=== PATIENT | male | born 1950 | race Caucasian/White ===

== ENCOUNTER 2019-08-30 10:44 | Emergency (ER) | payer OTHER ==
--- NOTE | 2019-08-30 11:15 | ED Physician Documentation ---
PD HPI BACK PAIN - Stated complaint Stated Complaint: BACK PX - Chief complaint Chief Complaint: Back Pain - History obtained from History obtained from: Patient - History of Present Illness Timing - onset: How many months ago (1-2) Timing - duration: Months Timing - details: Gradual onset, Still present (The patient has had 1 to 2 months of intermittent lower back pain. He does not recall any particular trauma. It seems to worsen with bending or lifting. Will hurt at times despite activity. It is worse with bending twisting and reaching. It is in the lower back without any radiation to the legs and there is no lower extremity paresis or paresthesias no any bowel or bladder dysfunction. The pain is been worse over the last week or so. No rash fevers or troubles urinating.), Waxing and waning Location: Lower, Right, Left Quality: Pain, Aching Associated symptoms: No: Fever, Weakness, Numbness, Incontinent of urine Improves with: Rest, Meds (ibuprofen) Worsened by: Movement, Lifting, Twisting. No: Palpation Contributing factors: No: Lifting, Trauma, Anticoagulated Similar symptoms before: Has not had sx before Recently seen: Not recently seen Review of Systems Constitutional: denies: Fever, Chills, Myalgias GI: denies: Abdominal Pain, Nausea, Vomiting, Diarrhea : denies: Dysuria, Frequency, Incontinent Skin: denies: Rash, Lesions Musculoskeletal: reports: Back pain. denies: Neck pain Neurologic: denies: Focal weakness, Numbness PD PAST MEDICAL HISTORY - Past Medical History Cardiovascular: Hypertension, High cholesterol - Past Surgical History General: Appendectomy - Present Medications Home Medications: Ambulatory Orders Medication Instructions Recorded Confirmed Hydrocodone/Acetaminophen 1 each PO Q6H PRN #25 tablet 08/30/19 [Hydrocodon-Acetaminophen 5-325] Naproxen 375 mg PO BID #20 tablet 08/30/19 Tizanidine HCl 4 mg PO TID PRN #25 capsule 08/30/19 dexAMETHasone [Decadron] 4 mg PO DAILY #5 tablet 08/30/19 - Allergies Allergies/Adverse Reactions: Allergies Allergy/AdvReac Type Severity Reaction Status Date / Time No Known Drug Allergies Allergy Verified 08/30/19 10:54 - Social History Does the pt smoke?: No Smoking Status: Never smoker Does the pt drink ETOH?: No Does the pt have substance abuse?: No PD ED PE NORMAL - Vitals Vital signs reviewed: Yes - General General: Alert and oriented X 3, No acute distress, Well developed/nourished - Neck Neck: Supple, no meningeal sign, No adenopathy - Cardiac Cardiac: RRR, No murmur - Respiratory Respiratory: Clear bilaterally - Abdomen Abdomen: Normal bowel sounds, Soft, Non tender, Non distended - Back Back: No CVA TTP, Other (He is tender in the muscles along the lower lumbar area more to the left. There is no midline tenderness per se. Lower extremities show normal motor and sensory and good reflexes at the knees. There is no pedal edema no calf tenderness.) - Derm Derm: Normal color, Warm and dry - Extremities Extremities: No tenderness to palpate, No edema, No calf tenderness / cord - Neuro Neuro: Alert and oriented X 3, No motor deficit, No sensory deficit Results - Vitals Vitals: Vital Signs - 24 hr 08/30/19 14:05 Heart Rate 74 Respiratory 18 Rate Blood Pressure 132/85 H O2 Saturation 100 Oxygen O2 Source Room air - Rads (name of study) lumbar CT Radiology: Prelim report reviewed (L5/S1 osteophyte and also Grade 1 spondylolisthesis. Some bridging osteophytes at other levels. No acute process. ), See rad report PD MEDICAL DECISION MAKING - ED course Complexity details: considered differential, d/w patient Departure - Departure Disposition: 01 Home, Self Care Clinical Impression: Low back pain Qualifiers: Chronicity: acute Back pain laterality: bilateral Sciatica presence: without sciatica Qualified Code(s): M54.5 - Low back pain Condition: Stable Record reviewed to determine appropriate education?: Yes Instructions: ED Low Back Pain Injury Follow-Up: PRITI TOMLINSON MD [Primary Care Provider] - Prescriptions: dexAMETHasone [Decadron] 4 mg PO DAILY #5 tablet Hydrocodone/Acetaminophen [Hydrocodon-Acetaminophen 5-325] 1 each PO Q6H PRN #25 tablet PRN Reason: pain Naproxen 375 mg PO BID #20 tablet Tizanidine HCl 4 mg PO TID PRN #25 capsule PRN Reason: Spasms Comments: Your CT scan did not show any significant abnormalities. There is arthritic changes noted in some mild looseness of the ligaments. We can try treating this with a combination of anti-inflammatories (naproxen and Decadron) as well as some muscle relaxant (tizanidine) and the pain medicine (Tylenol and hydrocodone). Take them as prescribed. Physical treatments such as massage and chiropractic are also useful for back pain. Follow-up with your primary care to see if there would like to institute some physical therapy as well to help with the ongoing pains. Recheck if not improving well over the next several days to week and again follow-up with your primary care regarding ongoing treatment. Discharge Date/Time: 08/30/19 14:05
[2019-08-30] MEDS ORDERED: DEXAMETHASONE 10 MG/ML VIAL PO STA (11:59)
[2019-08-30] MEDS ORDERED: NAPROXEN 250 MG TABLET PO STA (11:59)
[2019-08-30] MEDS ORDERED: ACETAMINOPHEN 325 MG TABLET PO STA (11:59)
[2019-08-30] MEDS ORDERED: CHERRY SYRUP 10 ML UDC PO ONE (11:59)
[2019-08-30] MEDS ORDERED: METHOCARBAMOL 500 MG TABLET PO STA (11:59)
--- NOTE | 2019-08-30 13:32 | CT Report ---
Reason: low back pain for 1-2 months, worse few days Procedure Date: 08/30/2019 Accession Number: [id number] / [id number] Procedure: CT - LUMBAR SPINE WO CPT Code: Final Report FULL RESULT: EXAM: CT LUMBAR SPINE WITHOUT CONTRAST EXAM DATE: 08/30/2019 12:18 PM. CLINICAL HISTORY: Low back pain for 1-2 months, worse few days. Patient reports radiating pain to left hip and bilateral groins. COMPARISONS: None. TECHNIQUE: Thin-section axial images were acquired of the lumbar spine from T11 to S1 without contrast. Post-processing: Coronal and sagittal reformats. Other: None. In accordance with CT protocol optimization, one or more of the following dose reduction techniques were utilized for this exam: automated exposure control, adjustment of mA and/or KV based on patient size, or use of iterative reconstructive technique. FINDINGS: Alignment: Mild convex left curvature centered at L3. 4 mm retrolisthesis L5 on S1, accentuated by osteophytes. Bones: Five [id number] lumbar vertebral bodies are present. No fractures or bone lesions. Small anterolateral partially bridging osteophytes at T12-L1. Disk Levels/Facets: Minimal to mild disk height loss and small osteophytes throughout, most prominent at L5-S1. Calcification noted in the L4-L5 disk space. T11-T12: Minimal disk osteophyte complex. Minimal facet hypertrophy. No stenosis. T12-L1: Minimal disk osteophyte complex. Minimal facet hypertrophy. No stenosis. L1-L2: Minimal facet hypertrophy. No stenosis. L2-L3: Minimal disk bulge. Minimal facet hypertrophy and sclerosis. No stenosis. L3-L4: Minimal disk bulge. Minimal facet hypertrophy and sclerosis. No stenosis. L4-L5: Minimal disk bulge, asymmetric to the right. Mild facet hypertrophy and sclerosis. No stenosis. L5-S1: Small disk osteophyte complex, asymmetric to the right. Mild facet hypertrophy. Disk osteophyte complex minimally effaces the anterior aspect of the thecal sac and may contact the traversing S1 nerve roots. Mild bilateral neural foraminal stenosis. Musculature: Mild fatty atrophy of the posterior paraspinous musculature. Other: Small hiatal hernia. Mild calcified atherosclerosis in the abdominal aorta. Multiple sigmoid diverticula partially visualized. Moderate degenerative changes at the bilateral sacroiliac joints with bridging anterior and superior osteophytes. IMPRESSION: 1. Mild degenerative disk and facet changes. 2. Grade 1 retrolisthesis L5 on S1, accentuated by osteophytes. 3. Disk osteophyte complex at L5-S1 may contact the bilateral traversing S1 nerve roots and contributes to mild bilateral neural foraminal stenosis. 4. Small partially bridging anterolateral osteophytes at T12-L1 and moderate to large bridging osteophytes at the sacroiliac joints. These may be degenerative. Spondyloarthropathy such as psoriatic or reactive arthritis also in the differential. Recommend correlate with laboratory values. [facility]
[2019-08-30 14:06] VITALS: BP 132/85
== END 2019-08-30 14:05 | disposition home or self-care (01) ==
LOC: ED 10:44
DX: M43.16 Spondylolisthesis, lumbar region (principal); M51.36 Other intervertebral disc degeneration, lumbar region; M25.78 Osteophyte, vertebrae; I10 Essential (primary) hypertension
CPT/HCPCS: 72131; 99283; 99284; A9270

== ENCOUNTER 2021-04-26 17:18 | Outpatient (CLI) | payer MEDICARE, OTHER | END 2021-04-26 17:19 | disposition home or self-care (01) | LOC: COV 17:18 | PROVIDERS: ATTEND Orthopaedic Surgery Hand Surgery | DX: Z01.812 Encounter for preprocedural laboratory examination (principal); Z20.822 Contact with and (suspected) exposure to COVID-19 ==